=== PATIENT | male | born 2000 | race Caucasian/White ===

== ENCOUNTER 2019-07-09 23:20 | Emergency (ER) | payer BC ==
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
[2019-07-09] MEDS ORDERED: Diphtheria,Pertussis(Acell),Tetanus Vaccine 0.5 ML SDV IM ONE (23:49)
[2019-07-09] MEDS ORDERED: Piperacillin/Tazobactam 3.375 GM in Sodium Chloride 0.9% 50 ML IV SCH (23:50)
[2019-07-09] MEDS ORDERED: HYDROmorphone 2 MG/ML SDV IVPUSH ONE (23:52)
[2019-07-10] MEDS ORDERED: HYDROmorphone 2 MG/ML SDV IVPUSH ONE (00:11)
[2019-07-10] MEDS ORDERED: Sodium Chloride 0.9% 1,000 ML IV SCH (02:15)
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
== END 2019-07-10 00:45 | disposition other institution (70) ==
LOC: FB.ED 23:20
DX: S92.311A Displaced fracture of first metatarsal bone, right foot, initial encounter for closed fracture (principal); S71.101A Unspecified open wound, right thigh, initial encounter; S61.401A Unspecified open wound of right hand, initial encounter; S31.103A Unspecified open wound of abdominal wall, right lower quadrant without penetration into peritoneal cavity, initial encounter; Z23 Encounter for immunization; W34.00XA Accidental discharge from unspecified firearms or gun, initial encounter
CPT/HCPCS: 36415; 72170; 73130-RT; 80053; 85025; 90471; 90715; 99285-25; G0480; J1170; J2543; J7030; J7050